=== PATIENT | male | born 1940 | race Caucasian/White ===

== ENCOUNTER → 2016-07-08 09:01 | Outpatient (CLI) | payer MEDICARE, OTHER ==
[2009-05-16 10:05] VITALS: BMI 27.9
[2016-07-08 09:50] LABS: BASOPHILS 0.3 % (0-2); EOSINOPHILS 4.1 % (0-7); HEMATOCRIT 43.1 % (42.0-54.0); HEMOGLOBIN 14.7 g/dL (13.5-17.5); LYMPHOCYTES 41.7 % (15-50); MCH 31.5 pg (26.0-34.0); MCHC 34.1 g/dL (31.0-37.0); MCV 92.5 fL (80.0-100.0); MEAN PLATELET VOLUME 9.3 fL (7.4-10.4); NEUTROPHILS 42.9 % (40-80); PLATELET COUNT 237 10x3/uL (130-400); RBC 4.66 10x6/uL (4.20-6.10); RDW 13.6 % (11.5-14.5); WBC 6.4 10x3/uL (4.8-10.8)
[2016-07-08 10:26] LABS: ALBUMIN 3.9 g/dL (3.4-5.0); ALKALINE PHOSPHATASE 61 U/L (46-116); ALT (SGPT) 26 U/L (10-68); BILIRUBIN - TOTAL 0.58 mg/dL (0.2-1.3); CALC OSMOLALITY 280 mosm/kg (275-300); CALCIUM 8.9 mg/dL (8.5-10.1); CARBON DIOXIDE 30.3 mmol/L (21.0-32.0); CHLORIDE - SERUM 104 mmol/L (98-107); CHOL - HDL RATIO 2.9 ratio (2.3-4.9); CHOLESTEROL, TOTAL 159 mg/dL (0-200); GLUCOSE 109 mg/dL (74-106); HDL CHOLESTEROL 54 mg/dL (32-96); LDL CHOLESTEROL 93 mg/dL (0-100); LDL-HDL RATIO 1.7 ratio (1.5-3.5); POTASSIUM - SERUM 4.5 mmol/L (3.5-5.1); PROTEIN - SERUM 6.8 g/dL (6.4-8.2); SODIUM 140 mmol/L (136-145); THYROID STIMULATING HORMONE 1.13 uIU/mL (0.36-3.74); TRIGLYCERIDE 62 mg/dL (30-200); UREA NITROGEN 15 mg/dL (7-18); eGFR NON AFRICAN AMERICAN 78 mL/min (90-120)
[2016-07-08 10:31] LABS: SCREENING PSA (YEARLY) 1.62 ng/mL (0.00-4.00)
== END | disposition home or self-care (01) ==
LOC: D.LAB 09:01
PROVIDERS: Family Medicine
DX: Z00.00 Encounter for general adult medical examination without abnormal findings (principal); Z12.5 Encounter for screening for malignant neoplasm of prostate; E78.5 Hyperlipidemia, unspecified; I10 Essential (primary) hypertension; I25.10 Atherosclerotic heart disease of native coronary artery without angina pectoris

== ENCOUNTER 2017-06-29 16:13 | Emergency (ER) | payer MEDICARE, OTHER ==
[2009-05-16 10:05] VITALS: BMI 27.9
== END 2017-06-29 18:01 | disposition home or self-care (01) ==
LOC: D.ER 16:13
DX: T78.40XA Allergy, unspecified, initial encounter (principal); X58.XXXA Exposure to other specified factors, initial encounter; T78.3XXA Angioneurotic edema, initial encounter; L50.9 Urticaria, unspecified

== ENCOUNTER → 2017-07-19 07:36 | Outpatient (CLI) | payer MEDICARE, OTHER ==
[2009-05-16 10:05] VITALS: BMI 27.9
[2017-07-19 08:37] LABS: ALBUMIN 3.5 g/dL (3.4-5.0); BILIRUBIN - DIRECT 0.11 mg/dL (0.00-0.30); BILIRUBIN - INDIRECT 0.41 mg/dL (0.00-1.00); BILIRUBIN - TOTAL 0.52 mg/dL (0.2-1.3); PROTEIN - SERUM 6.5 g/dL (6.4-8.2)
== END | disposition home or self-care (01) ==
LOC: D.LAB 07:36
PROVIDERS: Internal Medicine Gastroenterology
DX: R10.13 Epigastric pain (principal); K21.9 Gastro-esophageal reflux disease without esophagitis; R68.81 Early satiety

== ENCOUNTER → 2017-07-29 08:38 | Outpatient (CLI) | payer MEDICARE, OTHER ==
[2009-05-16 10:05] VITALS: BMI 27.9
== END | disposition home or self-care (01) ==
LOC: D.CT 08:38
DX: R10.13 Epigastric pain (principal)

== ENCOUNTER 2017-08-02 11:27 | Outpatient (CLI) | payer MEDICARE, OTHER ==
[2009-05-16 10:05] VITALS: BMI 27.9
== END 2017-08-02 14:25 ==
LOC: D.OPS 11:27
DX: K21.9 Gastro-esophageal reflux disease without esophagitis (principal); R10.13 Epigastric pain

== ENCOUNTER → 2017-08-05 07:44 | Outpatient (CLI) | payer MEDICARE, OTHER ==
[2009-05-16 10:05] VITALS: BMI 27.9
== END | disposition home or self-care (01) ==
LOC: D.NM 07:44
DX: R10.13 Epigastric pain (principal)

== ENCOUNTER → 2017-10-18 08:52 | Outpatient (CLI) | payer MEDICARE, OTHER ==
[2009-05-16 10:05] VITALS: BMI 27.9
== END | disposition home or self-care (01) ==
LOC: D.RAD 09-29 08:30
DX: R13.10 Dysphagia, unspecified (principal)